=== PATIENT | female | born 1930 | race Hispanic/Latino ===

== ENCOUNTER → 2020-11-04 | Outpatient (CLI) | payer MEDICARE ==
[~2020-11-04] MED LIST: ABX FOR UTI PO; COLACE100 MG PO; ERYTHROMYCIN500 MG PO; GLIPIZIDE10 MG PO; GOLYTELY SOLU4000 ML PO; LISINOPRIL-HCT1 EAC1 PO; LOVASTATIN40 MG PO; METFORMIN HCL1000 MG PO; NEOMYCIN SULFA500 MG PO; OMEPRAZOLE40 MG PO; TRADJENTA5 MG PO; TYLENOL WITH C1 EACH PO; ULTRACET TABLE1 EACH
== END ==
LOC: US 12:13
PROVIDERS: ATTEND Urology
DX: C64.2 Malignant neoplasm of left kidney, except renal pelvis (principal)
CPT/HCPCS: 71046; 76770